=== PATIENT | male | born 1965 | race Two or more races ===

== ENCOUNTER 2016-05-18 22:39 | Emergency (ER) | payer MEDICAID ==
[~2016-05-18] VITALS: Ht 185.4 cm; Wt 81.6 kg
[2016-05-18] MEDS ORDERED: Albuterol ud Inhalation HHN ONE (23:15)
[2016-05-18] MEDS ORDERED: Ipratropium 0.02% Inh Soln 2.5ml UD HHN ONE (23:15)
--- NOTE | 2016-05-19 00:10 | Emergency Room Report ---
History of Present Illness General Chief Complaint: Upper Respiratory Illness Source: Patient Present Illness HPI Is a 50-year-old male with a history of diabetes. He was just discharged from a halfway at 7 AM today. He was therefore 5 weeks for osteomyelitis of his right foot. He had palpitation the foot secondary to infection from his diabetes. He left about a week early because he said he couldn't stand it. He was being treated for possible pneumonia. He had a cough and congestion. He got 1 dose of Levaquin. He was discharged with prescription for inhalers but he did not get any oxygen or nebulizer machine. Throughout the day he had a fever and increasing coughing and soreness of breath. Is why he is here. Denies any chest pain. Worse with exertion. Worse with inspiration. Coughing is nonproductive in nature. Allergies: Coded Allergies: PENICILLINS (Verified Allergy, Unknown, 05/18/16) Patient History Past Medical History: see triage record, old chart reviewed, DM Past Surgical History: other Pertinent Family History: none Social History: Denies: smoking Immunizations: other Reviewed Nursing Documentation: PMH: Agreed, PSxH: Agreed Nursing Documentation-PMH Hx Hypertension: Yes Hx Diabetes: Yes Hx Gastrointestinal Problems: Yes - chronic kidney diaease History Of Psychiatric Problem: Yes - anxiety Review of Systems Constitutional: Reports: weakness Eye: Denies: blurred vision, eye pain ENT: Denies: ear pain, nose congestion, throat swelling Respiratory: Reports: cough, shortness of breath Cardiovascular: Denies: chest pain, palpitations Gastrointestinal: Denies: abdominal pain, diarrhea, nausea, vomiting Musculoskeletal: Denies: back pain, joint pain Skin: Denies: rash Neurological: Denies: headache, numbness Endocrine: Denies: increased thirst, increased urine Hematologic/Lymphatic: Denies: easy bruising All Other Systems: negative except mentioned in HPI Physical Exam Vital Signs Date Time Temp Pulse Resp B/P Pulse Ox O2 Delivery O2 Flow Rate FiO2 05/18/16 22:51 98.4 84 18 172/107 94 Room Air 05/18/16 23:20 100 vitals with hypertension Sp02 EP Interpretation: reviewed, normal General Appearance: alert, mild distress, Chronically Ill Head: normocephalic, atraumatic Eyes: bilateral eye EOMI, bilateral eye PERRL ENT: hearing grossly normal, normal pharynx Neck: full range of motion, supple, no meningismus Respiratory: chest non-tender, rhonchi Cardiovascular #1: regular rate, rhythm, no murmur Gastrointestinal: normal bowel sounds, non tender, no mass, no organomegaly, no bruit, non-distended Musculoskeletal: back normal, normal range of motion, other - right foot with great toe amputation Neurologic: alert, oriented x3 Psychiatric: mood/affect normal Skin: warm/dry Medical Decision Making Diagnostic Impression: Primary Impression: CHF (congestive heart failure) Qualified Codes: I50.9 - Heart failure, unspecified Additional Impressions: Pleural effusion Pneumonia Qualified Codes: J18.9 - Pneumonia, unspecified organism ER Course Patient presents with shortness of breath and cough. This probably secondary to atelectasis/early pneumonia secondary to large bilateral pleural effusion. No evidence of PE. No evidence of ACS. because of the large pleural effusion, I held off giving patient IV fluid. This would Make it worse. Patient will be admitted versus transfer based on insurance. I discussed case with Dr. Palma who accepted pt to [facility]. Lab Results Impression labs unremarkable EKG Diagnostic Results Rate: normal Rhythm: NSR ST Segments: no acute changes Rhythm Strip Diag. Results EP Interpretation: yes Rate: 80 Rhythm: NSR, no PVC's, no ectopy Chest X-Ray Diagnostic Results EP Interpretation: Yes Findings: no consolidation, no pneumothorax, no acute cardiopulmonary disease, other - atelectasis Number of Views: 1 CT/MRI/US Diagnostic Results CT/MRI/US Diagnostic Results : Imaging Test Ordered: cT chest Impression Read by radiologist. No PE. Large bilateral pleural effusion with compressive , consolidative changes. Last Vital Signs Date Time Temp Pulse Resp B/P Pulse Ox O2 Delivery O2 Flow Rate FiO2 05/18/16 23:43 84 20 Room Air 100 05/18/16 23:30 100 05/18/16 22:51 98.4 172/107 Condition: Serious Referrals: NOT CHOSEN NIMISHA/,REFERRING (PCP) ERROL GANNON M.D. May 19, 2016 00:10
[2016-05-19 00:20] LABS: APPEARANCE,URINE CLEAR; KETONES,URINE NEGATIVE (NEGATIVE); LEUKOCYTE ESTERASE ,URINE 2+ (NEGATIVE); NITRITE,URINE NEGATIVE (NEGATIVE); PH,URINE 6 (4.5-8.0); PROTEIN,URINE 4+ (NEGATIVE); UROBILINOGEN,URINE NORMAL MG/DL (0.0-1.0)
[2016-05-19 00:23] LABS: BASOPHILS % (AUTO) 1.1 % (0.0-2.0); LYMPHOCYTES % (AUTO) 18.3 % (20.0-45.0); MEAN CORPUSCULAR HEMOGLOBIN 27.9 PG (27.0-31.0); MEAN CORPUSCULAR HGB CONC 33.2 G/DL (32.0-36.0); MEAN CORPUSCULAR VOLUME 84 FL (80-99); MEAN PLATELET VOLUME 5.7 FL (6.5-10.1); NEUTROPHILS % (AUTO) 65.6 % (45.0-75.0); PLATELET COUNT 364 K/UL (150-450); RED BLOOD COUNT 4.51 M/UL (4.70-6.10); RED CELL DISTRIBUTION WIDTH 12.3 % (11.6-14.8); WHITE BLOOD COUNT 7.9 K/UL (4.8-10.8)
[2016-05-19 00:27] LABS: ALBUMIN/GLOBULIN RATIO 0.8 (1.0-2.7); CALCIUM 9.2 mg/dL (8.6-10.2); CREATININE 1.3 mg/dL (0.7-1.2); GLOMERULAR FILTRATION RATE 58.9 mL/min (>60); POTASSIUM 4.7 mEQ/L (3.4-4.9); TOTAL PROTEIN 7.3 g/dL (6.6-8.7)
[2016-05-19 00:32] LABS: TROPONIN I < 0.30 ng/mL (<=0.30)
[2016-05-19] MEDS ORDERED: LEVAQUIN500 MG ORAL (00:33)
[2016-05-19] MEDS ORDERED: LATANOPROST2.5 ML BOTH EYES (00:33)
[2016-05-19] MEDS ORDERED: DUONEB 0.5-3(2.53 ML HHN (00:33)
[2016-05-19] MEDS ORDERED: ZOFRAN4 M3 ORAL (00:33)
[2016-05-19] MEDS ORDERED: CATAPRES0.1 MG ORAL (00:33)
[2016-05-19] MEDS ORDERED: CARBAMAZEPINE200 MG ORAL (00:33)
[2016-05-19] MEDS ORDERED: BRIMONIDINE TART5 ML BOTH EYES (00:33)
[2016-05-19] MEDS ORDERED: LEVEMIR100 UNIT/1 SUBQ (00:33)
[2016-05-19] MEDS ORDERED: ALBUTEROL2.5 MG/3 M INH (00:33)
[2016-05-19] MEDS ORDERED: GABAPENTIN600 MG ORAL (00:33)
[2016-05-19] MEDS ORDERED: NOVOLIN R100 UNIT/1 SUBQ (00:33)
[2016-05-19] MEDS ORDERED: METOPROLOL SUC100 MG ORAL (00:33)
[2016-05-19] MEDS ORDERED: NORCO 10-325 T1 EACH ORAL (00:33)
[2016-05-19] MEDS ORDERED: AMLODIPINE BESYL5 MG ORAL (00:33)
[2016-05-19] MEDS ORDERED: TYLENOL650 MG/20. ORAL (00:33)
[2016-05-19] MEDS ORDERED: RESTORIL15 MG ORAL (00:33)
[2016-05-19] MEDS ORDERED: BENAZEPRIL HCL20 MG ORAL (00:33)
[2016-05-19 00:34] VITALS: BP 170/97
[2016-05-19 00:38] LABS: BACTERIA,URINE FEW /HPF; SQUAMOUS EPITHELIAL CELL,UR FEW /LPF (NONE/OCC)
[2016-05-19 00:39] LABS: TRANSITIONAL EPI CELLS,URINE OCCASIONAL /LPF
[2016-05-19 00:40] LABS: CKMB 3.2 ng/mL (< 6.7)
[2016-05-19 03:04] VITALS: BP 162/94
[2016-05-19] MEDS ORDERED: Azithromycin 250mg tab ORAL ONE (05:15)
[2016-05-19] MEDS ORDERED: cefTRIAXone 1 GM in NS 55 ML IVPB ONE (05:15)
[2016-05-19 06:02] VITALS: BP 170/101
[2016-05-19] MEDS ORDERED: Morphine Sulfate 4mg/ml Inj IVP ONE (07:15)
[2016-05-19 07:18] VITALS: BP 162/96
[2016-05-19 07:30] VITALS: BP 127/78
[2016-05-19 08:24] VITALS: BP 122/75
--- NOTE | 2016-05-19 11:51 | Diagnostic Imaging Report ---
EXAM: CT Chest HISTORY: Cough, shortness of breath. TECHNIQUE: Serial 3.0 mm axial images were obtained from the thoracic inlet through the adrenals following the administration of IV contrast. Multiplanar reformats were performed. COMPARISON: No prior study is available for comparison. FINDINGS: Moderate to large volume bilateral pleural effusions are identified, with compressive atelectasis at the lung bases. There are few patchy densities in the upper lungs. Mild scattered interstitial densities are identified. Findings may reflect mild interstitial edema, although superimposed pneumonia is not excluded. The trachea and central airways are patent. No distinct filling defect is noted in the main or central right or left pulmonary arteries to suggest large pulmonary embolism. However, this examination is not optimal for detection of pulmonary embolus in the segmental or subsegmental pulmonary arteries. The heart mildly enlarged. There is no evidence of pericardial effusion. There is no evidence of mediastinal, hilar or axillary adenopathy. The thyroid appears unremarkable. Visualized upper abdominal organs appear grossly normal. Small splenule is noted posterior to the spleen. The visualized bony structures appear intact. IMPRESSION: 1. Moderate to large volume bilateral pleural effusions with basilar compressive atelectasis. 2. Mild cardiomegaly with suspected mild interstitial edema. Superimposed pneumonia is not excluded. Continued surveillance is recommended.
--- NOTE | 2016-05-19 21:11 | Cardiology Report ---
APPROVED REPORT EKG Measurement Heart [id number] Normal sinus rhythm Septal infarct, age undetermined Abnormal ECG
--- NOTE | 2016-05-20 10:52 | Diagnostic Imaging Report ---
Clinical history: Shortness of breath Technique: Portable AP chest radiograph was obtained. Comparison: None Findings: Lung volumes are low with probable basilar atelectasis. There is mild cardiomegaly with mild perihilar and interstitial opacities suggesting pulmonary edema. Small bilateral pleural effusions are noted. The visualized osseous structures appear grossly intact. Impression: 1. Cardiomegaly with mild pulmonary edema and small bilateral pleural effusions. 2. Low lung volumes with probable basilar atelectasis.
== END 2016-05-19 08:39 | disposition short-term general hospital (02) ==
LOC: EMR 23:14 → EDBEDREQ 05-19 05:58 → EMR 05-19 08:39
DX: J18.9 Pneumonia, unspecified organism (principal); I10 Essential (primary) hypertension; E11.9 Type 2 diabetes mellitus without complications; J90 Pleural effusion, not elsewhere classified; I51.7 Cardiomegaly
CPT/HCPCS: 36415; 71010; 71275; 80053; 80300; 81003; 82550; 82553; 82962; 83605; 83880; 84484; 85025; 87040; 87081; 93005; 94640; 94664; 96360; 96374; 96375; 99285; J0696; J1940; J2270; J2405; Q0144; Q9967

== ENCOUNTER 2018-05-06 11:11 | Emergency (ER) | payer MEDICAID ==
[~2018-05-06] VITALS: Ht 167.6 cm; Wt 68.0 kg
[~2018-05-06 11:11] MED LIST: ALBUTEROL2.5 MG/3 M INH; AMLODIPINE BESYL5 MG ORAL; BENAZEPRIL HCL20 MG ORAL; BRIMONIDINE TART5 ML BOTH EYES; CARBAMAZEPINE200 MG ORAL; CATAPRES0.1 MG ORAL; DUONEB 0.5-3(2.53 ML HHN; GABAPENTIN600 MG ORAL; LATANOPROST2.5 ML BOTH EYES; LEVAQUIN500 MG ORAL; LEVEMIR100 UNIT/1 SUBQ; METOPROLOL SUC100 MG ORAL; NORCO 10-325 T1 EACH ORAL; NOVOLIN R100 UNIT/1 SUBQ; RESTORIL15 MG ORAL; TYLENOL650 MG/20. ORAL; ZOFRAN4 M3 ORAL
--- NOTE | 2018-05-06 11:22 | NUR ---
ED Nurse Note: Pt came from home due to complaints of SOB x 1 week. Complaining of chest pain 8/10 x 1 week. A + x4. Ambulatory. Skin warm to touch. Hx of PNA.
[2018-05-06 11:24] VITALS: BP 140/75
[2018-05-06] MEDS ORDERED: Acetaminophen 500mg (ES) tab ORAL ONE (11:45)
[2018-05-06 11:58] LABS: HEMATOCRIT 31.6 % (42.0-52.0); HEMOGLOBIN 9.9 G/DL (14.2-18.0); MEAN CORPUSCULAR VOLUME 84 FL (80-99); PLATELET COUNT 232 K/UL (150-450); RED BLOOD COUNT 3.77 M/UL (4.70-6.10); RED CELL DISTRIBUTION WIDTH 13.8 % (11.6-14.8); WHITE BLOOD COUNT 12.7 K/UL (4.8-10.8)
--- NOTE | 2018-05-06 12:06 | NUR ---
ED Nurse Note: Xray at the bedside.
[2018-05-06 12:15] LABS: ANION GAP 14 mmol/L (5-15); BLOOD UREA NITROGEN 89 mg/dL (7-18); CALCIUM 7.9 MG/DL (8.5-10.1); CARBON DIOXIDE 21 MMOL/L (21-32); CHLORIDE 99 MMOL/L (98-107); CREATININE 12.1 MG/DL (0.55-1.30); POTASSIUM 4.4 MMOL/L (3.5-5.1); SODIUM 134 MMOL/L (136-145)
[2018-05-06 12:33] LABS: ALANINE AMINOTRANSFERASE 23 U/L (12-78); ALBUMIN 2.2 G/DL (3.4-5.0); ALBUMIN/GLOBULIN RATIO 0.4 (1.0-2.7); ALKALINE PHOSPHATASE 84 U/L (46-116); ASPARTATE AMINO TRANSFERASE 32 U/L (15-37); BILIRUBIN,TOTAL 0.5 MG/DL (0.2-1.0); CKMB 6.8 NG/ML (0.0-3.6); CREATINE KINASE 1599 U/L (26-308)
--- NOTE | 2018-05-06 12:49 | Diagnostic Imaging Report ---
Indication: Cough Comparison: 05/18/2016 A single view chest radiograph was obtained. Findings: Heart is mildly enlarged. Prominent pulmonary vascularity and interstitial markings demonstrated as well as some airspace disease within the right lung. Bones are unremarkable. IMPRESSION: Patchy interstitial edema versus pneumonia
[2018-05-06 14:00] VITALS: BP 144/62
[2018-05-06] MEDS ORDERED: Albuterol ud Inhalation HHN ONE (14:15)
[2018-05-06] MEDS ORDERED: Ipratropium 0.02% Inh Soln 2.5ml UD HHN ONE (14:15)
--- NOTE | 2018-05-06 14:30 | NUR ---
ED Nurse Note: RT at the bedside.
--- NOTE | 2018-05-06 15:19 | Emergency Room Report ---
History of Present Illness General Chief Complaint: Dyspnea/Respdistress Source: Patient Present Illness HPI 52-year-old male presents ED for evaluation. Complaining of cough and shortness of breath and chest pain times one week. States he has a fever. Cough is productive with yellowish phlegm. Denies sick contacts or recent travel. Notes history of asthma. Denies leg swelling. No other aggravating relieving factors. Denies any other associated symptoms Allergies: Coded Allergies: PENICILLINS (Verified Allergy, Unknown, 05/18/16) Patient History Past Medical History: DM, HTN, renal disease Past Surgical History: none Pertinent Family History: none Social History: Denies: smoking, alcohol use, drug use Immunizations: UTD Reviewed Nursing Documentation: PMH: Agreed; PSxH: Agreed Nursing Documentation-PMH Past Medical History: No History, Except For Hx Hypertension: Yes Hx Diabetes: Yes Hx Gastrointestinal Problems: Yes - chronic kidney diaease Review of Systems All Other Systems: negative except mentioned in HPI Physical Exam Vital Signs Date Time Temp Pulse Resp B/P (MAP) Pulse Ox O2 Delivery O2 Flow Rate FiO2 05/06/18 11:15 102.9 104 18 142/76 80 Room Air 05/06/18 11:24 98 05/06/18 14:00 2.0 Sp02 EP Interpretation: reviewed, normal General Appearance: no apparent distress, alert, GCS 15, non-toxic Head: normocephalic, atraumatic Eyes: bilateral eye normal inspection, bilateral eye PERRL ENT: hearing grossly normal, normal pharynx, no angioedema, normal voice Neck: full range of motion, supple/symm/no masses Respiratory: chest non-tender, crackles, speaking full sentences Cardiovascular #1: regular rate, rhythm, no edema Cardiovascular #2: 2+ carotid (R), 2+ carotid (L), 2+ radial (R), 2+ radial (L) , 2+ dorsalis pedis (R), 2+ dorsalis pedis (L) Gastrointestinal: normal bowel sounds, non tender, soft, non-distended, no guarding, no rebound Rectal: deferred Genitourinary: normal inspection, no CVA tenderness Musculoskeletal: back normal, gait/station normal, normal range of motion, non- tender Neurologic: alert, oriented x3, responsive, motor strength/tone normal, sensory intact, speech normal Psychiatric: judgement/insight normal, memory normal, mood/affect normal, no suicidal/homicidal ideation Reflexes: 3+ bicep (R), 3+ bicep (L), 3+ tricep (R), 3+ tricep (L), 3+ knee (R) , 3+ knee (L) Skin: normal color, no rash, warm/dry, well hydrated Lymphatic: no adenopathy Medical Decision Making Diagnostic Impression: Primary Impression: Pneumonia Qualified Codes: J18.1 - Lobar pneumonia, unspecified organism Additional Impressions: CHF (congestive heart failure) Qualified Codes: I50.9 - Heart failure, unspecified ACS (acute coronary syndrome) Renal failure Qualified Codes: N19 - Unspecified kidney failure Rhabdomyolysis Qualified Codes: M62.82 - Rhabdomyolysis ER Course Hospital Course 52 yo M presents with CP, SOB, fever Differential diagnoses include: Pneumonia, CHF exacerbation, pneumothorax, fluid overload Clinical course Patient placed on stretcher. 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 After initial history and physical, I ordered nebulizer treatments, tylenol. I ordered labs, IV fluids, EKG, chest x-ray, blood cultures, UA. Labs - leukocytosis noted, hemoglobin/hematocrit stable, Cr 12.1, Trop 0.215, BNP elevated, CK 1599 CXR - R middle lobe infiltrate, CHF Patient was here in 2017 creatinine was 1.3 at the time. Patient was told that he needs to see a director heart but is unaware of his creatinine. Given Lasix. Given antibiotics. Given aspirin. Breathing improved after breathing treatments Cause of insurance patient will be transferred I feel this is a highly complex case requiring extensive working including EKG/ Rhythm strip, Xray/CT/US, Blood/urine lab work, repeat exams while in ED, and administration of strong opiates/narcotics for pain control, admission to hospital or close patient follow up. Diagnosis - pneumonia, CHF, ACS, renal failure, rhabdomyolysis Transferred in serious condition Labs Test 05/06/18 11:45 White Blood Count 12.7 K/UL (4.8-10.8) Red Blood Count 3.77 M/UL (4.70-6.10) Hemoglobin 9.9 G/DL (14.2-18.0) Hematocrit 31.6 % (42.0-52.0) Mean Corpuscular Volume 84 FL (80-99) Mean Corpuscular Hemoglobin 26.2 PG (27.0-31.0) Mean Corpuscular Hemoglobin Concent 31.3 G/DL (32.0-36.0) Red Cell Distribution Width 13.8 % (11.6-14.8) Platelet Count 232 K/UL (150-450) Mean Platelet Volume 6.4 FL (6.5-10.1) Neutrophils (%) (Auto) % (45.0-75.0) Lymphocytes (%) (Auto) % (20.0-45.0) Monocytes (%) (Auto) % (1.0-10.0) Eosinophils (%) (Auto) % (0.0-3.0) Basophils (%) (Auto) % (0.0-2.0) Differential Total Cells Counted 100 Neutrophils % (Manual) 91 % (45-75) Lymphocytes % (Manual) 3 % (20-45) Monocytes % (Manual) 6 % (1-10) Eosinophils % (Manual) 0 % (0-3) Basophils % (Manual) 0 % (0-2) Band Neutrophils 0 % (0-8) Platelet Estimate Adequate Platelet Morphology Normal Hypochromasia 1+ Sodium Level 134 MMOL/L (136-145) Potassium Level 4.4 MMOL/L (3.5-5.1) Chloride Level 99 MMOL/L (98-107) Carbon Dioxide Level 21 MMOL/L (21-32) Anion Gap 14 mmol/L (5-15) Blood Urea Nitrogen 89 mg/dL (7-18) Creatinine 12.1 MG/DL (0.55-1.30) Estimat Glomerular Filtration Rate 4.5 mL/min (>60) Glucose Level 164 MG/DL (74-106) Calcium Level 7.9 MG/DL (8.5-10.1) Total Bilirubin 0.5 MG/DL (0.2-1.0) Aspartate Amino Transf (AST/SGOT) 32 U/L (15-37) Alanine Aminotransferase (ALT/SGPT) 23 U/L (12-78) Alkaline Phosphatase 84 U/L (46-116) Total Creatine Kinase 1599 U/L (26-308) Creatine Kinase MB 6.8 NG/ML (0.0-3.6) Creatine Kinase MB Relative Index 0.4 Troponin I 0.215 ng/mL (0.000-0.056) Pro-B-Type Natriuretic Peptide > 26972 pg/mL (0-125) Total Protein 7.1 G/DL (6.4-8.2) Albumin 2.2 G/DL (3.4-5.0) Globulin 4.9 g/dL Albumin/Globulin Ratio 0.4 (1.0-2.7) EKG Diagnostic Results Rate: normal Rhythm: NSR ST Segments: no acute changes ASA given to the pt in ED: Yes Rhythm Strip Diag. Results EP Interpretation: yes Rhythm: NSR, no PVC's, no ectopy Chest X-Ray Diagnostic Results Chest X-Ray Diagnostic Results : Chest X-Ray Ordered: Yes # of Views/Limited/Complete: 1 View Indication: Chest Pain EP Interpretation: Yes Interpretation: no pneumothorax, other - CHF/PNA Impression: Other - CHF/PNA Electronically Signed by: Electronically signed by Byron Kang MD Last Vital Signs Date Time Temp Pulse Resp B/P (MAP) Pulse Ox O2 Delivery O2 Flow Rate FiO2 05/06/18 14:21 97 22 100 Nasal Cannula 2.0 28 05/06/18 14:00 99.2 144/62 Status: improved Disposition: XFER SHT-TRM HOSP Condition: Serious Referrals: [facility],REFERRING (PCP) Byron Kang MD May 06, 2018 15:19
--- NOTE | 2018-05-06 15:31 | NUR ---
ED Nurse Note: Gave telephone report to PAM Vlea from [facility]. Awaiting transport.
[2018-05-06 16:13] VITALS: BP 124/72
--- NOTE | 2018-05-06 17:11 | NUR ---
ED Nurse Note: Gave report to [facility].
[2018-05-06 17:13] VITALS: BP 125/69
--- NOTE | 2018-05-06 17:14 | NUR ---
ED Nurse Note: Pt picked up by [facility] to be transferred to [facility]. No acute distress noted. Left ER w/ all belongings.
== END 2018-05-06 17:16 | disposition short-term general hospital (02) ==
LOC: EMR 13:03
DX: J18.1 Lobar pneumonia, unspecified organism (principal); E11.22 Type 2 diabetes mellitus with diabetic chronic kidney disease; I13.0 Hypertensive heart and chronic kidney disease with heart failure and stage 1 through stage 4 chronic kidney disease, or unspecified chronic kidney disease; N18.9 Chronic kidney disease, unspecified; I50.9 Heart failure, unspecified; M62.82 Rhabdomyolysis; I24.9 Acute ischemic heart disease, unspecified; Z88.0 Allergy status to penicillin
CPT/HCPCS: 36415; 71045; 80053; 82550; 82553; 83880; 84484; 85007; 85025; 86710; 87040; 93005; 94640; 94664; 96365; 96375; 99285; J1940; J1956

== ENCOUNTER 2018-09-21 12:43 | Emergency (ER) | payer MEDICAID ==
[~2018-09-21] VITALS: Ht 185.4 cm; Wt 79.4 kg
--- NOTE | 2018-09-21 12:58 | NUR ---
ED Nurse Note: PT FROM HOME CAME IN DUE TO DIZZINESS, RIGHT EARACHE X 3 DAYS. PT STATES HE SOMETIMES HEARS A RINGING SOUND FROM HIS EAR AND IS LOOSING HIS HEARING FROM RIGHT EAR. DENIES DISCHARGE. AAO X4, AMBULATORY WITH UNLABORED BREATHING. DIALYSIS MWF AND HAS PERM-A-CATH ON RIGHT CHEST.
[2018-09-21 13:00] VITALS: BP 218/103
--- NOTE | 2018-09-21 13:08 | NUR ---
ED Nurse Note: BLOOD SPECIMEN SENT. PT TAKEN TO CT VIA GURNEY.
--- NOTE | 2018-09-21 13:46 | NUR ---
ED Nurse Note: PT CAME BACK FROM CT.
--- NOTE | 2018-09-21 14:01 | Diagnostic Imaging Report ---
Indication: Cough Technique: One view of the chest Comparison: 05/06/2018 Findings: Lungs and pleural spaces are clear. Interim clearing of previously demonstrated pulmonary edema or infiltrates. Interim placement of right jugular tunneled dialysis catheter. The heart size is normal. Impression: No acute process. Findings as noted
--- NOTE | 2018-09-21 14:06 | Diagnostic Imaging Report ---
Indications: Dizziness and right-sided pain Technique: Spiral acquisitions obtained through the brain. Angled axial and coronal 5 x 5 mm slices were reconstructed. Total dose length product 1305.64 mGycm. CTDI vol(s) 70.38 mGy. Dose reduction achieved using automated exposure control Comparison: None. Findings: No acute hemorrhage or edema, mass effect, nor midline shift. Normal lópez-white differentiation. Normal-sized ventricles and extra-axial CSF spaces. Intact calvarium. Visualized orbits and sinuses are unremarkable. The mastoids are clear. Impression: Negative The CT scanner at [facility] is accredited by the [employer] and the scans are performed using protocols designed to limit radiation exposure to as low as reasonably achievable to attain images of sufficient resolution adequate for diagnostic evaluation.
[2018-09-21 14:10] LABS: BASOPHILS % (AUTO) 1.1 % (0.0-2.0); EOSINOPHILS % (AUTO) 2.3 % (0.0-3.0); HEMATOCRIT 34.1 % (42.0-52.0); HEMOGLOBIN 11.1 G/DL (14.2-18.0); LYMPHOCYTES % (AUTO) 18.5 % (20.0-45.0); MEAN CORPUSCULAR VOLUME 82 FL (80-99); MONOCYTES % (AUTO) 9.5 % (1.0-10.0); NEUTROPHILS % (AUTO) 68.6 % (45.0-75.0); PLATELET COUNT 233 K/UL (150-450); RED BLOOD COUNT 4.17 M/UL (4.70-6.10); RED CELL DISTRIBUTION WIDTH 14.6 % (11.6-14.8); WHITE BLOOD COUNT 6.5 K/UL (4.8-10.8)
--- NOTE | 2018-09-21 14:22 | Emergency Room Report ---
History of Present Illness General Chief Complaint: Dizziness Source: Patient (Jessica Medina DO) Present Illness HPI This patient complains of loss of hearing in his right ear. He states this started about 3 days ago. He states that at times he will have ringing in the ear. He denies recent illness. He denies cough or congestion. He denies sore throat. He denies headache. He denies chest pain or shortness of breath. He denies abdominal pain. He does have a history of end-stage renal disease and is dialysis dependent. He did go to dialysis today. He has no other complaints. (Jessica Medina DO) Allergies: Coded Allergies: PENICILLINS (Verified Allergy, Unknown, 05/18/16) Patient History Past Medical History: see triage record, DM, HTN, renal disease, dialysis Social History: Denies: smoking, alcohol use, drug use Reviewed Nursing Documentation: PMH: Agreed; PSxH: Agreed (Jessica Medina DO) Nursing Documentation-PMH Past Medical History: No History, Except For Hx Hypertension: Yes Hx Diabetes: Yes Hx Gastrointestinal Problems: Yes - chronic kidney diaease, MWF (Jessica Medina DO) Review of Systems All Other Systems: negative except mentioned in HPI (Jessica Medina DO) Physical Exam Vital Signs Date Time Temp Pulse Resp B/P (MAP) Pulse Ox O2 Delivery O2 Flow Rate FiO2 09/21/18 12:48 98.2 83 19 219/115 (149) 100 09/21/18 12:58 Room Air Sp02 EP Interpretation: reviewed, normal General Appearance: no apparent distress, alert, GCS 15, non-toxic Head: normocephalic, atraumatic Eyes: bilateral eye normal inspection, bilateral eye PERRL ENT: hearing grossly normal, normal pharynx, no angioedema, normal voice, TMs + canals normal Neck: full range of motion, supple/symm/no masses Respiratory: chest non-tender, lungs clear, normal breath sounds, no respiratory distress, no retraction, no accessory muscle use, speaking full sentences Cardiovascular #1: regular rate, rhythm, no edema Gastrointestinal: normal bowel sounds, non tender, soft, non-distended, no guarding, no rebound Rectal: deferred Musculoskeletal: back normal, gait/station normal, normal range of motion, non- tender Neurologic: alert, oriented x3, responsive, motor strength/tone normal, sensory intact, speech normal Psychiatric: judgement/insight normal, memory normal, mood/affect normal, no suicidal/homicidal ideation Skin: normal color, no rash, warm/dry, well hydrated (Jessica Medina DO) Medical Decision Making Diagnostic Impression: Primary Impression: Malignant hypertension Additional Impression: Hearing loss ER Course This patient presents with malignant hypertension. He also has sudden hearing loss in his right ear. I am unsure of the etiology of this. CT of the head is unremarkable. My differential diagnosis includes: Sudden sensorineural hearing loss, ears disease, CVA, ototoxic drugs to name a few. 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 I had plan on admitting this patient for further evaluation by neurology and for his malignant hypertension, in addition to evaluation for his hearing loss that may be SSHL. However, I felt that I could not definitively diagnose as its SSHL without a full CVA evaluation. The patient's insurance company requested his transfer to another hospital that is contracted with the company. The patient is stable for transfer. Laboratory Tests Test 09/21/18 13:20 White Blood Count 6.5 K/UL (4.8-10.8) Red Blood Count 4.17 M/UL (4.70-6.10) L Hemoglobin 11.1 G/DL (14.2-18.0) L Hematocrit 34.1 % (42.0-52.0) L Mean Corpuscular Volume 82 FL (80-99) Mean Corpuscular Hemoglobin 26.7 PG (27.0-31.0) L Mean Corpuscular Hemoglobin Concent 32.6 G/DL (32.0-36.0) Red Cell Distribution Width 14.6 % (11.6-14.8) Platelet Count 233 K/UL (150-450) Mean Platelet Volume 5.9 FL (6.5-10.1) L Neutrophils (%) (Auto) 68.6 % (45.0-75.0) Lymphocytes (%) (Auto) 18.5 % (20.0-45.0) L Monocytes (%) (Auto) 9.5 % (1.0-10.0) Eosinophils (%) (Auto) 2.3 % (0.0-3.0) Basophils (%) (Auto) 1.1 % (0.0-2.0) Sodium Level 138 MMOL/L (136-145) Potassium Level 3.9 MMOL/L (3.5-5.1) Chloride Level 98 MMOL/L (98-107) Carbon Dioxide Level 33 MMOL/L (21-32) H Anion Gap 7 mmol/L (5-15) Blood Urea Nitrogen 33 mg/dL (7-18) H Creatinine 5.9 MG/DL (0.55-1.30) H Estimate Glomerular Filtration Rate 12.4 mL/min (>60) Glucose Level 82 MG/DL (74-106) Calcium Level 8.5 MG/DL (8.5-10.1) Total Bilirubin Pending Aspartate Amino Transferase (AST) Pending Alanine Aminotransferase (ALT) Pending Alkaline Phosphatase Pending Total Creatine Kinase Pending Creatine Kinase MB Pending Troponin I Pending Total Protein Pending Albumin Pending Globulin Pending (Jessica Medina DO) ER Course Patient was endorsed me by Dr. Vasquez.Patient was noted to have acute onset of hearing loss. Patient was discussed with [facility] physician for possible transfer to [facility]. Patient noted to have negative CT imaging patient may require further evaluation patient will require further work-up of acute hearing loss in addition to further control his blood pressure. Labs Test 09/21/18 13:20 White Blood Count 6.5 K/UL (4.8-10.8) Red Blood Count 4.17 M/UL (4.70-6.10) Hemoglobin 11.1 G/DL (14.2-18.0) Hematocrit 34.1 % (42.0-52.0) Mean Corpuscular Volume 82 FL (80-99) Mean Corpuscular Hemoglobin 26.7 PG (27.0-31.0) Mean Corpuscular Hemoglobin Concent 32.6 G/DL (32.0-36.0) Red Cell Distribution Width 14.6 % (11.6-14.8) Platelet Count 233 K/UL (150-450) Mean Platelet Volume 5.9 FL (6.5-10.1) Neutrophils (%) (Auto) 68.6 % (45.0-75.0) Lymphocytes (%) (Auto) 18.5 % (20.0-45.0) Monocytes (%) (Auto) 9.5 % (1.0-10.0) Eosinophils (%) (Auto) 2.3 % (0.0-3.0) Basophils (%) (Auto) 1.1 % (0.0-2.0) Sodium Level 138 MMOL/L (136-145) Potassium Level 3.9 MMOL/L (3.5-5.1) Chloride Level 98 MMOL/L (98-107) Carbon Dioxide Level 33 MMOL/L (21-32) Anion Gap 7 mmol/L (5-15) Blood Urea Nitrogen 33 mg/dL (7-18) Creatinine 5.9 MG/DL (0.55-1.30) Estimat Glomerular Filtration Rate 12.4 mL/min (>60) Glucose Level 82 MG/DL (74-106) Calcium Level 8.5 MG/DL (8.5-10.1) Total Bilirubin 0.4 MG/DL (0.2-1.0) Aspartate Amino Transf (AST/SGOT) 12 U/L (15-37) Alanine Aminotransferase (ALT/SGPT) 16 U/L (12-78) Alkaline Phosphatase 113 U/L (46-116) Total Creatine Kinase 350 U/L (26-308) Creatine Kinase MB 6.6 NG/ML (0.0-3.6) Creatine Kinase MB Relative Index 1.8 Troponin I 0.000 ng/mL (0.000-0.056) Total Protein 7.9 G/DL (6.4-8.2) Albumin 4.1 G/DL (3.4-5.0) Globulin 3.8 g/dL Albumin/Globulin Ratio 1.1 (1.0-2.7) (Natanael Shelton MD) EKG Diagnostic Results Rate: normal Rhythm: NSR ST Segments: no acute changes (Colianno,Jessica M. DO) Rhythm Strip Diag. Results EP Interpretation: yes Rate: 70's Rhythm: NSR, no PVC's, no ectopy (Colianno,Jessica M. DO) Chest X-Ray Diagnostic Results Chest X-Ray Diagnostic Results : Chest X-Ray Ordered: Yes # of Views/Limited/Complete: 1 View Indication: Other EP Interpretation: Yes Interpretation: no consolidation, no effusion, no pneumothorax, no acute cardiopulmonary disease Impression: No acute disease Electronically Signed by: Jessica Medina DO ([facility] ) CT/MRI/US Diagnostic Results CT/MRI/US Diagnostic Results : Imaging Test Ordered: CT head Impression No acute findings. Specifically no intracranial bleed, mass effect or edema. See official report. (Jessica Medina Raven [place]) Last Vital Signs Date Time Temp Pulse Resp B/P (MAP) Pulse Ox O2 Delivery O2 Flow Rate FiO2 09/21/18 13:00 98.2 87 15 218/103 100 09/21/18 12:58 Room Air (Jessica Medina Raven ) Status: improved (Natanael Shelton MD) Disposition: [facility] Condition: Stable Jessica Medina DO Sep 21, 2018 14:21 Natanael Shelton MD Sep 21, 2018 16:31
[2018-09-21 14:25] LABS: ANION GAP 7 mmol/L (5-15); BLOOD UREA NITROGEN 33 mg/dL (7-18); CALCIUM 8.5 MG/DL (8.5-10.1); CARBON DIOXIDE 33 MMOL/L (21-32); CHLORIDE 98 MMOL/L (98-107); CREATININE 5.9 MG/DL (0.55-1.30); POTASSIUM 3.9 MMOL/L (3.5-5.1); SODIUM 138 MMOL/L (136-145)
[2018-09-21 14:42] LABS: ALANINE AMINOTRANSFERASE 16 U/L (12-78); ALBUMIN 4.1 G/DL (3.4-5.0); ALBUMIN/GLOBULIN RATIO 1.1 (1.0-2.7); ALKALINE PHOSPHATASE 113 U/L (46-116); ASPARTATE AMINO TRANSFERASE 12 U/L (15-37); BILIRUBIN,TOTAL 0.4 MG/DL (0.2-1.0); CKMB 6.6 NG/ML (0.0-3.6); CREATINE KINASE 350 U/L (26-308)
[2018-09-21 15:00] VITALS: BP 119/93
--- NOTE | 2018-09-21 16:43 | NUR ---
ED Nurse Note: REPORT GIVEN TO BIANKA OROZCO OF [facility].
--- NOTE | 2018-09-21 17:29 | NUR ---
REPORT GIVEN TO LEYDA QUALITY IMPROVEMENT SPECIALIST PATIENT IS TO BE TRANSFERD VIA ACLS PROTOCOL BY [facility]
[2018-09-21 17:30] VITALS: BP 190/100
--- NOTE | 2018-09-22 16:06 | Cardiology Report ---
APPROVED REPORT EKG Measurement Heart [id number] Normal sinus rhythm Normal ECG
== END 2018-09-21 17:33 | disposition short-term general hospital (02) ==
LOC: EMR 13:25
DX: H91.91 Unspecified hearing loss, right ear (principal); I10 Essential (primary) hypertension; E11.9 Type 2 diabetes mellitus without complications; I12.9 Hypertensive chronic kidney disease with stage 1 through stage 4 chronic kidney disease, or unspecified chronic kidney disease; E11.22 Type 2 diabetes mellitus with diabetic chronic kidney disease; N18.9 Chronic kidney disease, unspecified; Z99.2 Dependence on renal dialysis; Z88.0 Allergy status to penicillin
CPT/HCPCS: 36415; 70450; 71045; 80053; 82550; 82553; 84484; 85025; 93005; 96374; 99284; J0360; J7512